=== PATIENT | male | born 1945 | race Caucasian/White ===

== ENCOUNTER 2021-01-03 06:22 | Emergency (ER) | payer MEDICARE, OTHER, SELFPAY ==
[2021-01-03] VITALS (8 sets, daily range): BP systolic 115–187; BP diastolic 78–112; PULSE 88–113; RESP 16; TEMP 36.4; O2SAT 96–98; BMI 25.1
--- NOTE | 2021-01-03 06:39 | ED.EPISTAXIS ---
HPI - Epistaxis <Neil Avery DO - Last Filed: 01/03/21 22:23> General Chief complaint: Nasal Problem Stated complaint: post op/nose bleeding x1 1/2 hour Time Seen by Provider: 01/03/21 06:35 History of Present Illness HPI Narrative: 75-year-old male former smoker history of asthma and mitral valve prolapse presents with his in the chief complaint of a spontaneous left-sided nosebleed that started about 90 minutes prior to his arrival. He states that is largely coming from his left knee air though some is working its way around to his right [place], he does feel a dripping down the back of his throat. He does not take any blood thinners. He denies systemic symptoms such as headache, blurred vision, chest pain or shortness of breath. He is not dizzy, weak or lightheaded. Patient was recently referred by local ear nose and throat to a your [facility] of [place] for treatment of a complex nasal polyp along with resection of meningioma. Patient contacted his doctor's you double were directed to present here for further evaluation. Related Data Home Medications Medication Instructions Recorded Confirmed fluticasone propionate 50 0 INTRANASAL SEE INSTRUCTIONS #0 10/19/16 11/02/18 mcg/actuation nasal spray,suspension Previous Rx's Medication Instructions Recorded albuterol sulfate 90 mcg/actuation 1 - 2 puff INHALATION Q4H PRN #8.5 07/20/20 aerosol inhaler g beclomethasone dipropionate 40 2 inh INHALATION Q12H #10.6 g 09/25/20 mcg/actuation HFA breath activated aerosol (Qvar RediHaler) Allergies Allergy/AdvReac Type Severity Reaction Status Date / Time NSAIDS (Non-Steroidal Allergy Severe ASTHMA Verified 11/02/18 10:22 Anti-Inflamma INDUCED [NSAIDS (NON-STEROIDAL RESP. ANTI-INFLAMMA] DISTRESS. hydromorphone AdvReac Mild PARANOIA Verified 11/02/18 10:22 codeine AdvReac Unknown NAUSEA Verified 11/02/18 10:22 prednisone [PREDNISONE] AdvReac Unknown multiple: Verified 11/02/18 10:36 tremors, paranoia, N/V, etc Review of Systems <DO Julia Alvarez Last Filed: 01/03/21 22:23> Review of Systems Narrative: GENERAL: Denies chills, fatigue, malaise, fever, sweats. HEENT: See HPI RESPIRATORY: Denies dyspnea, cough, wheezing, hemoptysis, sputum. CARDIOVASCULAR: Denies chest pain, palpitations, orthopnea, edema, GASTROINTESTINAL: Denies nausea, vomiting, abdominal pain, diarrhea, constipation, melena. : Denies dysuria, frequency, incontinence, hematuria, urinary retention. MUSCULOSKELETAL: denies weakness, joint pain, or bony pain SKIN: Denies rash, skin lesions, or other NEUROLOGIC: Denies weakness, headache, numbness, change in speech, confusion, seizures, incoordination. PSYCHIATRIC: No concerning psychosocial issues. 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 Well-developed patient, in mild distress. Holding a towel over his nose HEAD: Atraumatic. Normocephalic. EYES: Pupils equal round and reactive. Extraocular motions intact. No scleral icterus. No injection or drainage. ENT: Bright red blood slowly oozing from left naris which seems to be obstructed by soft tissue. There is a slow trickle in the posterior pharynx of red blood Without erythema, tonsillar hypertrophy or exudate. Airway patent. NECK: Trachea midline. Non tender CARDIOVASCULAR: Regular rate and rhythm without murmurs, gallops, or rubs. RESPIRATORY: Clear to auscultation. Breath sounds equal bilaterally. No wheezes, rales, or rhonchi. GASTROINTESTINAL: Abdomen soft, non-tender, nondistended. EXTREMITIES: No edema or joint tenderness. BACK: Nontender without deformity or crepitance. No flank tenderness. NEURO: AOx3. SKIN: No rash or erythema of visible areas Initial Vital Signs Initial Vital Signs: Vital Signs Temperature 97.6 F 01/03/21 06:37 Pulse Rate 88 01/03/21 06:37 Respiratory Rate 16 01/03/21 06:37 Blood Pressure 187/112 H 01/03/21 06:37 Pulse Oximetry 98 01/03/21 06:37 <Kp Domínguez DO - Last Filed: 01/03/21 10:31> Initial Vital Signs Initial Vital Signs: Vital Signs Temperature 97.6 F 01/03/21 06:37 Pulse Rate 88 01/03/21 06:37 Respiratory Rate 16 01/03/21 06:37 Blood Pressure 187/112 H 01/03/21 06:37 Pulse Oximetry 98 01/03/21 06:37 <Kp Domínguez DO - Last Filed: 01/03/21 10:31> Epistaxis Control Time Out Performed: Yes Nostril: left Nose Prepped With: oxymetazoline Direct Inspection: yes Clots Removed by: blowing nose Device Inserted: hemostatic balloon Device Size: 45 Patient Tolerated Procedure: well and no complications Course <Neil Avery DO - Last Filed: 01/03/21 22:23> Course Course Narrative: records obtained from , call placed to ENT at given complexity of recent procedure. Patient signed out to Dr. Domínguez for ongoing evaluation and final disposition. Orders Ordered: Discontinued Medications Oxymetazoline HCl (Oxymetazoline Nasal [place] 15 Ml) 2 sprays NASAL NOW ONE Stop: 01/03/21 06:40 Last Admin: 01/03/21 06:45 Dose: 2 sprays Documented by: CHUCHO Tranexamic Acid (Tranexamic Acid 1,000 Mg Vial) 1,000 mg TOP NOW ONE Stop: 01/03/21 07:59 Last Admin: 01/03/21 09:13 Dose: 1,000 mg Documented by: CHUCHO Vital Signs Vital signs: Vital Signs - 8 hr 01/03/21 06:37 01/03/21 07:35 01/03/21 08:00 Temperature 97.6 F Pulse Rate 88 101 H 106 H Respiratory Rate 16 Blood Pressure 187/112 H 138/85 Pulse Oximetry 98 97 96 01/03/21 08:30 01/03/21 09:00 01/03/21 09:30 Temperature Pulse Rate 113 H Respiratory Rate Blood Pressure 139/83 128/80 122/83 Pulse Oximetry 96 96 97 <Kp Domínguez DO - Last Filed: 01/03/21 10:31> Orders Ordered: Discontinued Medications Oxymetazoline HCl (Oxymetazoline Nasal [place] 15 Ml) 2 sprays NASAL NOW ONE Stop: 01/03/21 06:40 Last Admin: 01/03/21 06:45 Dose: 2 sprays Documented by: CHUCHO Tranexamic Acid (Tranexamic Acid 1,000 Mg Vial) 1,000 mg TOP NOW ONE Stop: 01/03/21 07:59 Last Admin: 01/03/21 09:13 Dose: 1,000 mg Documented by: CHUCHO Vital Signs Vital signs: Vital Signs - 8 hr 01/03/21 06:37 01/03/21 07:35 01/03/21 08:00 Temperature 97.6 F Pulse Rate 88 101 H 106 H Respiratory Rate 16 Blood Pressure 187/112 H 138/85 Pulse Oximetry 98 97 96 01/03/21 08:30 01/03/21 09:00 01/03/21 09:30 Temperature Pulse Rate 113 H Respiratory Rate Blood Pressure 139/83 128/80 122/83 Pulse Oximetry 96 96 97 <DO Julia Gonzalez Last Filed: 01/03/21 10:31> MDM Narrative Medical decision making narrative: I did discuss the case with Dr. Navarro who is the your nose and throat provider the patient has been seeing at the [facility]. He stated that we could place a nasal tampon. A 4.5 nasal tampon was placed on the left. Patient was observed for a significant amount of time afterwards. This nasal tampon was coated with TXA. We were able to control the bleeding. He has a follow-up already scheduled in 2 days. He was given return precautions and follow-up instructions. He expressed understanding and agreement. Discharge Plan Departure Patient Disposition: Home Clinical Impression: Epistaxis Instructions: DI for Nosebleed Activity Restrictions/Additional Instructions: Keep your appointment on Monday that is already scheduled with your ear nose and throat provider. Try your best not to rub your nose the next couple days. Return to the emergency department for any new or worsening symptoms. Prescriptions: No Action fluticasone propionate 16 GM spray,suspension 0 Intranasal SEE INSTRUCTIONS Qty: 0 RF: 0 albuterol sulfate 90 mcg/actuation HFA aerosol inhaler 1 - 2 puff inhalation Q4H PRN (Reason: shortness of breath or wheezing) Qty: 8.5 RF: 0 Qvar RediHaler 40 mcg/actuation HFA aerosol breath activated 2 inh inhalation Q12H Qty: 10.6 RF: 0
[2021-01-03] MEDS: OXYMETAZOLINE NASAL SPRAY 15 ML 2 SPRAYS NASAL (06:45)
--- NOTE | 2021-01-03 07:19 | PC.NURSE ---
Called transfer center for this patient as directed by provider for ENT consult at 07:13am.
[2021-01-03] MEDS: TRANEXAMIC ACID 1,000 MG VIAL 1000 MG TOP (09:13)
== END 2021-01-03 11:04 | disposition home or self-care (01) ==
PROVIDERS: Emergency Provider Emergency Medicine
DX: R04.0 Epistaxis (principal)
CPT/HCPCS: 30905; 99282; 99283; A9270